=== PATIENT | female | born 1980 | race Caucasian/White ===

== ENCOUNTER → 2016-11-15 | Outpatient (CLI) | payer OTHER ==
--- NOTE | 2016-11-15 21:10 | MRI ---
MRI right shoulder without contrast INDICATION: Shoulder pain limited range of motion no specific injury symptoms x6 weeks TECHNIQUE: Noncontrast MR imaging right shoulder standard protocol FINDINGS: Mild tendinosis of the supraspinatus and infraspinatus tendons. Mild subacromial and subdeltoid bursal edema. No displaced labral tear. There is minimal undersurface fraying of the superior labrum but no detachment or displacement. No advanced arthrosis. No active capsular inflammation or injury identified. Minimal grade 1 marbling of the rotator cuff muscle bellies. Minimal type III acromial morphology. There is a small interstitial tear of the distal subscapularis sagittal series 701 image 12. There is also edema along the bursal surface of the anterior margin of the supraspinatus on the sagittal fat suppressed images. No bicep rupture or dislocation. IMPRESSION: Small interstitial partial tear distal subscapularis tendon without detachment or retraction Mild subacromial and subdeltoid bursitis Mild undersurface fraying superior labrum without detachment or displacement Electronically signed by: Ibrahima Bauer MD 11/15/2016 9:09 PM CDT
== END | disposition home or self-care (01) ==
LOC: MRI 10:09
PROVIDERS: ATTEND Family Medicine
DX: M25.511 Pain in right shoulder (principal)

== ENCOUNTER 2018-05-02 13:55 | Inpatient (IN) | payer OTHER ==
--- NOTE | 2018-05-02 14:12 | HP ---
SUPERVISING PHYSICIAN: John Morse M.D. CHIEF COMPLAINT: Nausea, vomiting and diarrhea. HISTORY OF PRESENT ILLNESS: This is a 38 year-old female patient who has had an approximately 1 year history of diarrhea. She has diarrhea 2 to 3 days per week and then her stool normalizes, but starting last Monday she had diarrhea 8 to 10 times per day. She also became nauseated and vomited. She vomited 5 times on Monday and 6 times on Monday. She attempted to go to work this morning and was having diarrhea and vomiting at the same time, so she called Dr. Street' office and she was seen by BALTAZAR Luque, at [facility] today. In [facility], her glucose was 117 with BUN 14, creatinine 0.8. Sodium 142 but potassium was low at 3.3. Chloride was 109 with CO2 of 17, calcium 10.1 and total protein 8.8. Liver enzymes were within normal limits. WBCs were 13.2 with hemoglobin 19.2 and hematocrit 51.6. HCG was negative. She had an x-ray of her abdomen done and it showed nondilated small bowel and colon with small air-fluid level suggesting enteritis or enterocolitis or ileus. Otherwise negative abdominal two view. They then ordered a CT of the abdomen and it showed interval increased bilaterally nonobstructing nephrolithiasis compared to previous exam with internal resolution of right hydronephrosis and hydroureter. Colon diverticulosis without CT evidence of diverticulitis, borderline enlarged lymph nodes in the left central mesentery measuring up to 10 mm that are indeterminate and they could be reactive and consider short term followup. I was called for direct admission. After she was admitted to the hospital her urinalysis showed 100 of urine protein, 40 of urine ketones, moderate urine blood, small amount of urine bilirubin, 5 to 10 urine RBCs, 3 to 5 urine WBCs and 2+ urine bacteria. Stool for occult blood was negative. PAST MEDICAL HISTORY: 1. Gastroesophageal reflux disease. 2. Renal stones. 3. Migraine headaches. 4. Chronic diarrhea. PAST SURGICAL HISTORY: 1. Open reduction and internal fixation of right elbow. 2. Lap band surgery in June of 2010. 3. Lap band removal in 03/2016. CURRENT MEDICATIONS: Per the EMR and awaiting verification. ALLERGIES: NO KNOWN DRUG ALLERGIES. FAMILY HISTORY: Positive for hypertension, hyperlipidemia and renal failure as well as bone cancer and heart palpitations. 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 She is . She has 2 children. She smokes approximately 1/2 pack of cigarettes daily. She does not drink any alcoholic beverages or use any illicit drugs. REVIEW OF SYSTEMS: GENERAL: Positive for malaise. Negative for fever or weight changes. HEENT: Negative for ear pain, sinus symptoms, vision changes or sore throat. RESPIRATORY: Negative for coughing, wheezing or shortness of breath. CARDIAC: Negative for chest pain, palpitations or tachycardia. GASTROINTESTINAL: As per history of present illness. GENITOURINARY: Positive for foul-smelling urine as well as concentrated urine. Positive for some low back pain. Negative for hematuria or dysuria. NEUROLOGIC: Positive for migraine headaches. Negative for dizziness or seizures. SKIN: Negative for lesions or rashes. PHYSICAL EXAMINATION: VITAL SIGNS: Temperature 98.5, heart rate 95, blood pressure 115/84, respiratory rate 20, O2 sat 95% on room air. GENERAL: This is a 38 year-old obese female who is lying in her hospital bed. She is in no acute distress. HEENT: Normocephalic and atraumatic. Pupils are equal and reactive. Oropharynx is clear. Oral mucous membranes are slightly dry. NECK: Supple without mass. RESPIRATORY: Essentially clear to auscultation bilaterally. CARDIOVASCULAR: Regular rate and rhythm. GASTROINTESTINAL: Abdomen is soft, nondistended, non-tender. Bowel sounds are positive. There is no rebound tenderness or guarding. EXTREMITIES: No clubbing, cyanosis or edema. NEUROLOGIC: She is awake, alert and oriented times three. Cranial nerves II- XII are grossly intact. LABORATORY: Labs and films are as per history of present illness. ASSESSMENT: 1. Dehydration secondary to chronic diarrhea times one year with nausea and vomiting times 3 days. 2. Hypokalemia most likely secondary to #1. 3. Urinary tract infection with leukocytosis. 4. Elevated H&H of 19.2 and 51.6 most likely secondary to #1. 5. Nonobstructing kidney stones per CT with a significant history of renal stones. 6. History of migraine headaches. 7. Gastroesophageal reflux disease. PLAN: We will admit the patient to the hospital. She will be hydrated with IV fluids and I will repeat her labs in the morning. I have ordered stool studies as well as blood cultures and urine culture. I started her on Rocephin for her UTI. I have also ordered IV Protonix for ulcer prophylaxis and Lovenox for DVT prophylaxis. I will give her a full liquid this evening and make her NPO at midnight as we may need to run further testing tomorrow. I have also given her some morphine for pain. She will need close followup with Dr. Street as well as a followup with her children's book author, Dr. Taylor. We will continue to monitor closely and follow as needed. [facility][id number] [facility]
[2018-05-02] MEDS ORDERED: ONDANSETRON INJ 4 MG/2 ML VIAL IV PRN (14:31)
[2018-05-02] MEDS ORDERED: SODIUM CHLORIDE 0.9% (FLUSH) 10 ML SYG IV PRN (14:31)
[2018-05-02] MEDS ORDERED: IV SET AND CAP CHANGE INJ INJ SCH (15:00)
[2018-05-02] MEDS ORDERED: SODIUM CHLORIDE 0.45% 1000ML 1,000 ML IVS ONE (15:03)
[2018-05-02] MEDS ORDERED: POTASSIUM CHLORIDE 20 MEQ TAB PO ONE (15:03)
[2018-05-02] MEDS ORDERED: ACETAMINOPHEN 325 MG TAB PO ONE (17:20)
[2018-05-02] MEDS ORDERED: cefTRIAXone SODIUM 1 GM VIAL ONE (17:27)
[2018-05-02] MEDS ORDERED: SODIUM CHLORIDE 0.9% 50ML 50 ML ONE (17:28)
[2018-05-02] MEDS ORDERED: PANTOPRAZOLE SODIUM IV 40 MG VIAL IV SCH (17:30)
[2018-05-02] MEDS: cefTRIAXone SODIUM 1 GM in SODIUM CHL 0.9% 50ML MIN-BAG+ 50 ML IVPB SCH (17:34)
[2018-05-02] MEDS ORDERED: MORPHINE SULFATE INJ 10 MG/ML VIAL IV PRN (18:51)
[2018-05-02] MEDS: KCL 20MEQ/D5 1/2NS 1,000 ML IVS PRN (19:20)
[2018-05-02] MEDS: ENOXAPARIN SODIUM 40 MG/0.4 ML SYG SUBCU SCH (21:51)
[2018-05-02] MEDS: SODIUM CHLORIDE 0.9% (FLUSH) 10 ML SYG IV SCH (21:52)
[2018-05-03] MEDS: KCL 20MEQ/D5 1/2NS 1,000 ML IVS PRN ×3 (03:30→22:16)
--- NOTE | 2018-05-03 07:18 | RAD ---
EXAM: Two view(s) of the abdomen. INDICATION: Diarrhea. COMPARISON: None. FINDINGS: Intraperitoneal free air: Negative. Bowel: No dilated loops of small bowel or air-fluid levels. Bones: Unremarkable. Other: Essure coils are noted in the pelvis. IMPRESSION: 1. Nonspecific, nonobstructed bowel gas pattern. Electronically signed by: Juan Luis Hill MD 05/03/2018 7:15 AM CDT Workstation: [id number]
[2018-05-03] MEDS: PANTOPRAZOLE SODIUM IV 40 MG VIAL IV SCH (09:17)
[2018-05-03] MEDS: SODIUM CHLORIDE 0.9% (FLUSH) 10 ML SYG IV SCH ×2 (09:20→20:48)
[2018-05-03] MEDS ORDERED: POTASSIUM CHLORIDE 20 MEQ TAB PO ONE (10:54)
--- NOTE | 2018-05-03 13:08 | PN ---
SUPERVISING PHYSICIAN: Marquita Morse MD DATE: 05/03/18 SUBJECTIVE: The patient is sitting up in her bed. She has had no complaints of nausea, vomiting, diarrhea, constipation, shortness of breath or chest pain. She did have one episode of a loose stool, but other than that, no problems overnight. We discussed her discharge plan and she will need to see Dr. Taylor after discharge. OBJECTIVE: VITAL SIGNS: Temperature 98.6. Heart rate 74. Blood pressure 104/69. Respiratory rate 20. O2 saturation 96% on room air. RESPIRATORY: Essentially clear to auscultation bilaterally. CARDIAC: Regular rate and rhythm. GASTROINTESTINAL: Abdomen is soft, nondistended, nontender. Bowel sounds are positive. NEUROLOGIC: Awake, alert and oriented times three. LABORATORY: Her labs today show normal WBC of 8.8, hemoglobin 16.5, hematocrit 4.8. Sodium 135, potassium 3.1, chloride 105, carbon dioxide 21. Liver enzymes within normal limits. BUN 10, creatinine 0.64. Clostridium difficile was negative for both toxin and antigen. Stool culture is pending. Stool leukocytes were negative. Preliminary blood cultures negative today. Abdominal x-ray shows nonspecific, nonobstructive bowel gas pattern. All other labs and films have been reviewed via the EMR. ASSESSMENT: 1. Dehydration secondary to chronic diarrhea times one year with nausea and vomiting times 3 days. 2. Hypokalemia, most likely secondary to #1. 3. Urinary tract infection with leukocytosis. 4. Elevated hemoglobin of 19.2 and hematocrit 51.6 most likely secondary to #1, improved today to hemoglobin 16.5 and hematocrit 48. 5. Nonobstructing kidney stones per CT with a significant history of renal stones. 6. History of migraine headaches. 7. Gastroesophageal reflux disease. PLAN: We will continue present supportive care. She has received some potassium supplementation and I have advanced her diet to clear liquids. If she tolerates that without problems, we will advance her to a bland diet. I will also try to get her a followup appointment with Dr. Taylor next week as well as her primary care physician, Dr. Street. I will repeat her labs in the morning. I will follow the patient as needed. #[id number] [facility]
[2018-05-03] MEDS ORDERED: SODIUM CHL 0.9% 50ML MIN-BAG+ 50 ML IVPB ONE (16:42)
[2018-05-03] MEDS ORDERED: cefTRIAXone SODIUM 1 GM VIAL ONE (16:42)
[2018-05-03] MEDS: cefTRIAXone SODIUM 1 GM in SODIUM CHL 0.9% 50ML MIN-BAG+ 50 ML IVPB SCH (17:15)
[2018-05-03] MEDS: ENOXAPARIN SODIUM 40 MG/0.4 ML SYG SUBCU SCH (20:48)
[2018-05-03] MEDS ORDERED: ACETAMINOPHEN 325 MG TAB PO PRN (20:50)
[2018-05-04] MEDS: KCL 20MEQ/D5 1/2NS 1,000 ML IVS PRN (05:58)
[2018-05-04] MEDS: PANTOPRAZOLE SODIUM IV 40 MG VIAL IV SCH (06:04)
[2018-05-04 07:15] VITALS: BP 91/65; TEMP 98.6
[2018-05-04 10:51] VITALS: O2SAT 93
[2018-05-04] MEDS: SODIUM CHLORIDE 0.9% (FLUSH) 10 ML SYG IV SCH (11:10)
--- NOTE | 2018-05-21 08:13 | DS ---
SUPERVISING PHYSICIAN: John Morse M.D. ADMISSION DIAGNOSES: 1. Dehydration secondary to chronic diarrhea times one year with nausea and vomiting times 3 days. 2. Hypokalemia most likely secondary to #1. 3. Urinary tract infection with leukocytosis. 4. Elevated H&H of 19.2 and 51.6 most likely secondary to #1. 5. Nonobstructing kidney stones per CT with a significant history of renal stones. 6. History of migraine headaches. 7. Gastroesophageal reflux disease. DISCHARGE DIAGNOSES: 1. Dehydration secondary to chronic diarrhea times one year with nausea and vomiting times 3 days, now resolved. 2. Hypokalemia, most likely secondary to #1, resolved. 3. Urinary tract infection with leukocytosis with final cultures showing urogenital esteban present. 4. Elevated hemoglobin of 19.2 and hematocrit 51.6 most likely secondary to #1, improved today to hemoglobin 16.5 and hematocrit 48. 5. Nonobstructing kidney stones per CT with a significant history of renal stones. 6. History of migraine headaches. 7. Gastroesophageal reflux disease.Y REASON FOR HOSPITALIZATION: This is a 38 year-old female patient who has had an approximately one year history of diarrhea. She has diarrhea 2 to 3 days per week and then her stool normalizes, but starting last Monday she had diarrhea 8 to 10 times per day. She also became nauseated and vomited. She vomited 5 times on Monday and 6 times on Monday. She attempted to go to work this morning and was having diarrhea and vomiting at the same time, so she called Dr. Street' office and she was seen by BALTAZAR Luque, at [facility] today. In [facility], her glucose was 117 with BUN 14, creatinine 0.8. Sodium 142 but potassium was low at 3.3. Chloride was 109 with CO2 of 17, calcium 10.1 and total protein 8.8. Liver enzymes were within normal limits. WBCs were 13.2 with hemoglobin 19.2 and hematocrit 51.6. HCG was negative. She had an x-ray of her abdomen done and it showed nondilated small bowel and colon with small air-fluid level suggesting enteritis or enterocolitis or ileus. Otherwise negative abdominal two view. They then ordered a CT of the abdomen and it showed interval increased bilaterally nonobstructing nephrolithiasis compared to previous exam with internal resolution of right hydronephrosis and hydroureter. Colon diverticulosis without CT evidence of diverticulitis, borderline enlarged lymph nodes in the left central mesentery measuring up to 10 mm that are indeterminate and they could be reactive and consider short term followup. I was called for direct admission. After she was admitted to the hospital her urinalysis showed 100 of urine protein, 40 of urine ketones, moderate urine blood, small amount of urine bilirubin, 5 to 10 urine RBCs, 3 to 5 urine WBCs and 2+ urine bacteria. Stool for occult blood was negative. LABORATORY: White count on admission was 8,800, at discharge was 6,300. On admission, hemoglobin 16.5, hematocrit 48.0, discharge hemoglobin 13.4, hematocrit 39.0. Platelet count 247,000 at discharge, differential both on admission and discharge was without a left shift. Chemistries on admission showed a mildly low potassium at 3.1, otherwise at discharge had normalized with a potassium of 3.8, BUN and creatinine 0.54. Calcium 8.1, magnesium 1.8. Liver functions were all within normal limits. Urinalysis showed 100 of protein, ketones 40, moderate amount of blood, small amount of bilirubin. Microscopic revealed 5 to 10 RBCs, 3 to 5 WBCs, 5 to 10 epithelials, 2+ bacteria, large amount of mucus and urine HCG was negative. MICROBIOLOGY: Urine culture showed normal urogenital esteban present. C-diff was negative for both toxin and antigen. Stool leukocytes showed negative and stool culture final results showed normal enteric esteban recovered, no salmonella, shigella, Campylobacter Aeromonas or Pseudomonas cultured. HOSPITAL COURSE: Ms. Moss was admitted on 05/02/2018 as noted above for severe dehydration with questionable urinary tract infection. She was started on Rocephin, given fluids and on the day of discharge was showing good clinical response to treatment and was felt well enough to continue with outpatient management. PLAN: Ms. Moss was discharged with instructions to followup with Dr. Street, to call his office after discharge. She was to take new medications as directed and return to the Emergency Room if she had any concerning symptoms. New prescriptions at discharge included: 1. Ceftin 200 mg twice a day, #10. 2. Protonix 20 mg daily, #30. DISCHARGE DIET: Regular diet as tolerated. ACTIVITIES: Increase as tolerated. CONDITION ON DISCHARGE: Stable and improving. DISPOSITION: Patient was discharged to care of family. #[id number] [facility]
== END 2018-05-04 11:20 | disposition home or self-care (01) | DRG 641 ==
LOC: OBSVTOIN 13:55 → MS 13:55
PROVIDERS: ADMIT Nurse Practitioner Acute Care; ATTEND Nurse Practitioner Family
DX: E86.0 Dehydration (principal); N39.0 Urinary tract infection, site not specified; E87.6 Hypokalemia; D58.2 Other hemoglobinopathies; K21.9 Gastro-esophageal reflux disease without esophagitis; N20.0 Calculus of kidney; R11.2 Nausea with vomiting, unspecified; R19.7 Diarrhea, unspecified; F17.210 Nicotine dependence, cigarettes, uncomplicated; Z98.84 Bariatric surgery status

== ENCOUNTER → 2018-05-02 | Outpatient (CLI) | payer OTHER ==
--- NOTE | 2018-05-02 12:33 | CT ---
EXAM DESCRIPTION: Abdoment/Pelvis w/o Contrast CLINICAL HISTORY: ABDOMINAL PAIN COMPARISON: October 13, 2008 TECHNIQUE: Noncontrast transaxial CT images of the abdomen and pelvis are obtained. This exam was performed according to our departmental dose-optimization program, which includes automated exposure control, adjustment of the mA and/or kV according to patient size and/or use of iterative reconstruction technique . FINDINGS: Visualized lung bases show no acute findings. Given the limitations of a noncontrast exam the liver, spleen, pancreas, adrenal glands, and gallbladder are unremarkable. Multiple nonobstructing calcifications are seen in the calyces of the kidneys bilaterally measuring less than 5 mm diameter. These are increased in size and number compared to previous exam in both kidneys. Interval resolution of right hydronephrosis and resolution of right distal ureteral calcification seen on previous exam is noted. No ureteral calcification or obstruction is seen. Urinary bladder is contracted and not evaluated. Uterus is unremarkable. Fallopian tube occluders are seen bilaterally. Ovaries are unremarkable. The appendix is within normal limits. Small fat-containing umbilical hernia seen. The stomach and small bowel are unremarkable. Mild scattered diverticuli of the colon mainly in the descending to sigmoid region are seen without associated inflammatory changes or fluid collections. No pathologically enlarged lymphadenopathy is seen. Borderline enlarged lymph nodes in the central mesentery measure up to 10 mm short axis. Osseous structures show no aggressive bony lesions. IMPRESSION: Interval increased bilateral nonobstructing nephrolithiasis compared to previous exam. Interval resolution of right hydronephrosis and hydroureter. Colon diverticulosis without CT evidence of diverticulitis is seen. Borderline enlarged lymph nodes in the left central mesentery measuring up to 10 mm are indeterminate. These could be reactive. Consider short-term imaging follow-up. Electronically signed by: Boris Randolph MD 05/02/2018 12:30 PM CDT
== END ==
LOC: CT 11:36
PROVIDERS: ATTEND Physician Assistant
DX: N20.0 Calculus of kidney (principal); K57.30 Diverticulosis of large intestine without perforation or abscess without bleeding

== ENCOUNTER → 2020-01-27 | Outpatient (CLI) | payer BC | LOC: LAB.O 08:21 | PROVIDERS: ATTEND Internal Medicine Gastroenterology | DX: R19.7 Diarrhea, unspecified (principal) ==